=== PATIENT | female | born 1945 | race Caucasian/White ===

== ENCOUNTER 2018-01-07 12:10 | Inpatient (IN) | payer OTHER, MEDICAID ==
[~2018-01-07] VITALS: Ht 162.6 cm; Wt 93.0 kg
[2018-01-07] VITALS (7 sets, daily range): BP systolic 108–135; BP diastolic 39–53
--- NOTE | ~2018-01-07 | PROC ---
[address] [address] PROCEDURE REPORT Name: MADALYN HOLT Room: [address] IN ..#: [id number] Admission: 01/07/18 Attend Phys: Mary Ying MD Discharge: 01/13/18 Date of : 47 Report #: [id number] THIS REPORT FOR: //name// For GI report, Please see the Provation report In Perceptive 7. By: [facility]4Medical Records Staff MARIA DEL CARMEN /AAYUSH
[2018-01-07] MEDS ORDERED: COUMADIN 1MG TAB1 M1 (12:21)
[2018-01-07 12:50] LABS: HEMATOCRIT 20.3 % (37.0-47.0); MCH 30.1 pg (26.0-34.0); MCHC 31.7 g/dL (28.0-37.0); MPV 7.8 fl. (7.2-11.1); NUCLEATED RBCS 0 /100WBC; PLATELET COUNT* 365 thou/uL (150-400); RBC 2.14 mil/uL (4.20-5.00); RDW-CV 17.7 % (10.5-14.5); WBC 16.4 thou/uL (4.0-11.0)
[2018-01-07 12:58] LABS: BE 1.9 mmol/L (-2 to +3); PCO2 27.6 mmHg (35.0-45.0); pH 7.558 (7.340-7.450)
[2018-01-07 12:59] LABS: ANION GAP 9 mmol/L (7-16); BUN 35 mg/dL (7-18); CHLORIDE 104 mmol/L (98-107); CO2 27 mmol/L (21-32); CREATININE 1.5 mg/dL (0.6-1.3); GLUCOSE 218 mg/dL (70-99); SODIUM 140 mmol/L (136-145)
[2018-01-07 13:00] LABS: PO2 57.3 mmHg (75.0-100.0)
[2018-01-07 13:00] LABS: APTT 42.5 Seconds (25.0-31.3); PROTIME 83.7 Seconds (9.20-11.50)
[2018-01-07 13:10] LABS: ALBUMIN 2.3 g/dL (3.4-5.0); ALKALINE PHOSPHATASE 182 U/L (46-116); NT-PRO BRAIN NAT PEPTIDE 153 pg/mL (<300); POTASSIUM 2.9 mmol/L (3.5-5.1); SGOT 49 U/L (15-37); SGPT 39 U/L (30-65); TOTAL BILIRUBIN 0.7 mg/dL (<0.1-1.0); TOTAL PROTEIN 6.1 g/dL (6.4-8.2); TROPONIN-I LEVEL <0.06 ng/mL (<0.06)
[2018-01-07 13:11] LABS: INR 8.3
[2018-01-07 13:14] LABS: HEMOGLOBIN 6.5 gm/dL (12.0-15.0)
[2018-01-07 13:45] LABS: ABSOLUTE MONOCYTES 0.8 thou/uL (0.0-1.2); ABSOLUTE NEUTROPHILS 14.6 thou/uL (1.6-8.1); PLATELET ESTIMATE ADEQUATE
[2018-01-07 13:46] LABS: ANISOCYTOSIS 1+; HYPOCHROMASIA 1+; MACROCYTES 1+
--- NOTE | 2018-01-07 13:54 | NUR ---
MITALI NOTIFIED UPON PT RETURN FROM CT.PT CONNECTED TO MONITOR AND 02
--- NOTE | 2018-01-07 14:39 | NUR ---
ASSUMED PT CARE
--- NOTE | 2018-01-07 15:49 | NUR ---
PURSE MEDS AND BELONGINGS SENT WITH DAUGHTER ANDRES.
[2018-01-07] MEDS ORDERED: LASIX 40 MG TAB40 M2 PO (16:47)
[2018-01-07] MEDS ORDERED: ALDACTONE50 MG PO (16:48)
[2018-01-07] MEDS ORDERED: IRON325 PO (16:49)
[2018-01-07] MEDS ORDERED: PROPRANOLOL 1010 M1 (16:51)
[2018-01-07] MEDS ORDERED: OMEPRAZOLE40 MG PO (16:52)
[2018-01-07] MEDS ORDERED: PRENATAL MULTI1 EAC6 PO (16:53)
[2018-01-07] MEDS ORDERED: ASPIR-TRIN325 MG PO (16:53)
[2018-01-07] MEDS ORDERED: HUMALOG100 UNIT/1 SUBQ (16:55)
[2018-01-07] MEDS ORDERED: LANTUS SUBQ (16:56)
[2018-01-07] MEDS ORDERED: INVOKANA100 MG PO (16:57)
[2018-01-07] MEDS ORDERED: ENULOSE10 GM/15 M PO (17:00)
[2018-01-07] MEDS ORDERED: CELEBREX 200 M200 M1 PO (17:01)
[2018-01-07] MEDS ORDERED: FOSAMAX 70 MG T70 MG PO (17:02)
[2018-01-07 17:05] LABS: MAGNESIUM 1.9 mg/dL (1.8-2.4)
--- NOTE | 2018-01-07 17:14 | EKG ---
[place] [address] ELECTROCARDIOGRAM REPORT Name: SHIRIN HOLTKADI Stone Room: [address] ADM IN [facility].#: [id number] Admission: 01/07/18 Attend Phys: Mary Ying MD Discharge: Date of : 47 Report #: [id number] THIS REPORT FOR: //name// [facility] ED Test Date: 2018-01-07 Test Time: 13:24:18 Pat Name: MADALYN HOLT Department: Room: [facility] Gender: F Airport Representative: : 1945 Requested By: Solomon Conway Order Number: [id number] MD: Stephon Schaffer Measurements Intervals Dodge Rate: 103 P: MN: QRS: -28 QRSD: 106 T: 39 QT: 356 QTc: 466 Interpretive Statements sinus tachycardia Borderline left axis deviation artifact noted late transition No previous ECG available for comparison Electronically Signed On 01-07-2018 17:14:44 DRY HEAT ROOM ATTENDANT by Stephon Schaffer [email or web address] <ELECTRONICALLY SIGNED> By: Stephon Schaffer MD, [facility] 01/07/18 1714 1324 Stephon Schaffer MD, FACC /EPI
[2018-01-08] VITALS (7 sets, daily range): BP systolic 103–150; BP diastolic 43–56
[2018-01-08 05:21] LABS: MCH 31.1 pg (26.0-34.0); MCHC 32.9 g/dL (28.0-37.0); MCV 94.6 fL (80.0-100.0); MPV 7.6 fl. (7.2-11.1); NUCLEATED RBCS 0 /100WBC; RBC 1.95 mil/uL (4.20-5.00); WBC 5.6 thou/uL (4.0-11.0)
[2018-01-08 05:43] LABS: PLATELET COUNT* 176 thou/uL (150-400)
[2018-01-08 05:46] LABS: ALBUMIN 1.8 g/dL (3.4-5.0); ALKALINE PHOSPHATASE 121 U/L (46-116); ANION GAP 6 mmol/L (7-16); BUN 30 mg/dL (7-18); CALCIUM 7.4 mg/dL (8.5-10.1); CHLORIDE 110 mmol/L (98-107); CO2 29 mmol/L (21-32); CREATININE 1.2 mg/dL (0.6-1.3); GLUCOSE 147 mg/dL (70-99); PHOSPHORUS* 2.6 mg/dL (2.5-4.9); SGOT 39 U/L (15-37); SGPT 30 U/L (30-65); SODIUM 145 mmol/L (136-145); TOTAL BILIRUBIN 0.4 mg/dL (<0.1-1.0)
[2018-01-08 05:47] LABS: HEMATOCRIT 18.4 % (37.0-47.0); HEMOGLOBIN 6.1 gm/dL (12.0-15.0)
[2018-01-08 05:51] LABS: POTASSIUM 2.9 mmol/L (3.5-5.1)
[2018-01-08 07:05] LABS: CHOLESTEROL 78 mg/dL (<200); HDL CHOLESTEROL 30 mg/dL (>40); LDL CHOLESTEROL 42 mg/dL (<100); TC:HDL 2.6 Ratio (Not establshd); TRIGLYCERIDE 33 mg/dL (<150); VLDL 7 mg/dL (<40)
[2018-01-08 07:26] LABS: SERUM ASSESSMENT Clear
[2018-01-08 08:36] LABS: ABSOLUTE BASOPHILS 0.1 thou/uL (0.0-0.2); ABSOLUTE EOSINOPHILS 0.1 thou/uL (0.0-0.7); ABSOLUTE LYMPHOCYTES 0.7 thou/uL (0.8-5.3); ABSOLUTE MONOCYTES 0.7 thou/uL (0.0-1.2); ABSOLUTE NEUTROPHILS 4.1 thou/uL (1.6-8.1); LYMPHOCYTES 12.1 %; MONOCYTES 11.9 %
--- NOTE | 2018-01-08 08:47 | NUR ---
PT ALERT AND ORIENTED X 4 AT THIS TIME. SAT MAINTAINED IN 2L NC. CALL LIGHT WITHIN REACH AND FALL PRECAUTIONS MAINTAINED. DENIES ANY SOB. PT PASSED SWALLOW SCREEN TEST. VSS STABLE AND CHARTED. PT IS ON ELECTROLYTE PROTOCOL.
[2018-01-08 09:19] LABS: PROTIME 63.6 Seconds (9.20-11.50)
[2018-01-08 09:27] LABS: INR 6.3
--- NOTE | 2018-01-08 12:25 | 2DMMODE ---
[place] [address] 2 D/M-MODE ECHOCARDIOGRAM Name: HOLTMADALYN Room: [address] IN [facility]#: [id number] Admission: 01/07/18 Attend Phys: Mary Ying MD Discharge: Date of : 47 Date of Service: 01/08/18 1225 Report #: [id number] THIS REPORT FOR: //name// APPROVED REPORT Study performed: 01/07/2018 17:43:04 EXAM: Comprehensive 2D, Doppler, and color-flow Echocardiogram Patient Location: In-Patient Room #: [facility] BSA: 1.96 HR: 103 bpm BP: 123/49 mmHg Other Information Study Quality: Good Indications CVA/TIA Echo Enhancing Agent Indication: Rule out Shunt Agent(s) / Amount(s) Used: Agitated Saline 10 cc 2D Dimensions IVSd: 10.80 (7-11mm) LVOT Diam: 20.43 (18-24mm) LVDd: 45.41 mm PWd: 10.21 (7-11mm) Ascending Ao: 34.23 (22-36mm) LVDs: 29.04 (25-40mm) Aortic Root: 33.74 mm Volumes Left Atrial Volume (Systole) LA ESV Index: 19.70 mL/m2 Aortic Valve AoV Peak Cortez.: 2.04 m/s AO Peak Gr.: 16.66 mmHg LVOT Max P.82 mmHg AO Mean Gr.: 8.64 mmHg LVOT Mean P.65 mmHg LVOT Max V: 1.31 m/s AO V2 VTI: 34.08 cm LVOT Mean V: 0.88 m/s NADEEM (VTI): 2.13 cm2 LVOT V1 VTI: 22.10 [place] [address] 2 D/M-MODE ECHOCARDIOGRAM Name: MADALYN HOLT Room: [address] IN [facility]#: [id number] Admission: 01/07/18 Attend Phys: Mary Ying MD Discharge: Date of : 47 Date of Service: 01/08/18 1225 Report #: [id number] Medial E' Cortez.: 0.09 m/s Lateral E' Cortez.: 0.11 m/s Pulmonary Valve PV Peak Cortez.: 1.75 m/s PV Peak Gr.: 12.22 mmHg Tricuspid Valve RAP Estimate: 5.00 mmHg TR Peak Gr.: 27.88 mmHg RVSP: 32.88 mmHg PA Pressure: 32.88 mmHg Left Ventricle The left ventricle is normal size. There is normal LV segmental wall motion. There is normal left ventricular wall thickness. Left ventricular systolic function is normal. LVEF is 60-65%. Transmitral Doppler flow pattern suggests impaired LV relaxation. Right Ventricle The right ventricle is normal size. The right ventricular systolic function is normal. Atria The left atrium size is normal. Injection of bubbles documented no interatrial shunt. The right atrium size is normal. Aortic Valve The aortic valve is normal in structure. No aortic regurgitation is present. There is no aortic valvular stenosis. Mitral Valve The mitral valve is normal in structure. There is no mitral valve regurgitation noted. No evidence of mitral valve stenosis. Tricuspid Valve The tricuspid valve is normal in structure. Mild tricuspid regurgitation. The RVSP is 28 mmHg. Pulmonic Valve The pulmonary valve is normal in structure. There is no pulmonic valvular regurgitation. Great Vessels The aortic root is normal in size. IVC is normal in size and collapses >50% [place] [address] 2 D/M-MODE ECHOCARDIOGRAM Name: MADALYN HOLT Room: [address] IN [facility]#: [id number] Admission: 01/07/18 Attend Phys: Mary Ying MD Discharge: Date of : 47 Date of Service: 01/08/18 1225 Report #: [id number] There is no pericardial effusion. <Conclusion> The left ventricle is normal size. There is normal left ventricular wall thickness. Left ventricular systolic function is normal. LVEF is 60-65%. Transmitral Doppler flow pattern suggests impaired LV relaxation. Injection of bubbles documented no interatrial shunt. Mild tricuspid regurgitation. The RVSP is 28 mmHg. IVC is normal in size and collapses >50% with inspiration. <ELECTRONICALLY SIGNED> By: Rhys Aggarwal MD, FACC 01/08/18 1225 24 Rhys Aggarwal MD, FACC /INF
[2018-01-08 16:13] LABS: HEMOGLOBIN 7.1 gm/dL (12.0-15.0)
--- NOTE | 2018-01-08 18:47 | NUR ---
ASSUMED PT CARE AT 0730, FULL ASSESMENT DONE CHARTED. PT A/O X4, NPO FOR GI AND SPEECH THERAPY CONSULTS. VSS, SR ON THE MONITOR. SATS 96% ON 2L O2. PT RECIEVED 1 UNIT BLOOD TODAY, IRON, IV ABX, HAD MRI AND ECHO. PT EDUCATED ON TESTS AND RESULTS. FAMILY AT BEDSIDE. PT USES CALL LIGHT APPROPRIALTY FOR NEEDS. WAS ABLE TO EAT DINNER. NPO TONIGHT AT MIDNIGHT FOR ABD US TOMORROW. FALL PRECAUTIONS IN PLACE, WILL CONTINUE TO MONITOR.
[2018-01-09] VITALS: BP 122/56
[2018-01-09 01:23] LABS: ABSOLUTE BASOPHILS 0.1 thou/uL (0.0-0.2); ABSOLUTE EOSINOPHILS 0.2 thou/uL (0.0-0.7); ABSOLUTE LYMPHOCYTES 0.6 thou/uL (0.8-5.3); ABSOLUTE MONOCYTES 0.8 thou/uL (0.0-1.2); ABSOLUTE NEUTROPHILS 3.5 thou/uL (1.6-8.1); BASOPHILS 1.2 %; EOSINOPHILS 3.7 %; HEMATOCRIT 20.4 % (37.0-47.0); LYMPHOCYTES 10.9 %; MCH 29.8 pg (26.0-34.0); MCHC 32.4 g/dL (28.0-37.0); MCV 91.9 fL (80.0-100.0); MONOCYTES 15.4 %; MPV 7.9 fl. (7.2-11.1); NUCLEATED RBCS 1 /100WBC; PLATELET COUNT* 194 thou/uL (150-400); POLYS 68.8 %; RBC 2.21 mil/uL (4.20-5.00); RDW-CV 17.9 % (10.5-14.5); WBC 5.1 thou/uL (4.0-11.0)
[2018-01-09 01:29] LABS: PROTIME 38.4 Seconds (9.20-11.50)
[2018-01-09 01:30] LABS: HEMOGLOBIN 6.6 gm/dL (12.0-15.0)
[2018-01-09 01:34] LABS: INR 3.8
[2018-01-09 01:37] LABS: ALBUMIN 1.7 g/dL (3.4-5.0); CALCIUM 6.4 mg/dL (8.5-10.1); TOTAL BILIRUBIN 0.4 mg/dL (<0.1-1.0); TOTAL PROTEIN 4.8 g/dL (6.4-8.2)
[2018-01-09 01:38] LABS: POTASSIUM 3.9 mmol/L (3.5-5.1)
[2018-01-09 05:00] VITALS: BP 119/52
--- NOTE | 2018-01-09 06:47 | NUR ---
PT CARE ASSUMED AT 1930. ALERT AND ORIENTED X4. SAT MAINATAINED IN 2L NC. UP WITH ASSIST TO BEDSIDE COMMODE. CALL LIGHT WITHIN REACH AND BED IN LOW POSITION. DENIES PAIN AND SOB. WILL CONTINUE TO MONITOR.
[2018-01-09 08:00] VITALS: BP 111/51
[2018-01-09 12:00] VITALS: BP 124/56
[2018-01-09 13:39] LABS: HEMATOCRIT 28.5 % (37.0-47.0)
[2018-01-09 13:40] LABS: HEMOGLOBIN 9.3 gm/dL (12.0-15.0)
[2018-01-09 16:48] VITALS: BP 121/53
--- NOTE | 2018-01-09 19:43 | NUR ---
ASSUMED PT CARE AT 0730, FULL ASSESMENT DONE CHARTED. PT A/O X4, DENIES PAIN, UP WITH ASSIST. BM TODAY, VSS, SR ON THE MONITOR. PT SAT UP IN CHAIR FOR APPROX 2 HOURS THIS AFTERNOON. SHE C/O PRESSURE ON ABDOMEN AND WANTS TO LAY DOWN. PT USES CALL LIGHT APPROPRAILTY. FALL PRECAUTIONS IN PLACE. REPORT GIVEN TO KAUSHAL MCCLELLAN.
[2018-01-09 20:32] VITALS: BP 114/51
[2018-01-10] VITALS: BP 107/53
[2018-01-10 04:00] VITALS: BP 113/51
--- NOTE | 2018-01-10 06:05 | NUR ---
ASSUMED CARE OF PATIENT AT APPROX 1930. ALERT AND OREINTED X4. ASSESSMENT COMPLETED AND CHARTED. VSS ON 2 LITERS 02 VIA NC. RIGHT ANF LEFT FOREARM IVS REMAIN PATENT WITH FLUSHES, ANIBITOIC INFUSED ORDERED. PATIENT UP WITH ONE TO BEDSIDE COMMODE. NSR ON THE MONITOR. NO COMPLAINTS OF PAIN, NAUSEA, OR SOA THIS SHIFT. HOURLY ROUNDS MAINTAINED, CALL LIGHT IN REACH, NURSING WILL CONTINUE TO MONITOR.
[2018-01-10 06:08] LABS: HEMATOCRIT 25.3 % (37.0-47.0); HEMOGLOBIN 8.3 gm/dL (12.0-15.0); MCH 29.5 pg (26.0-34.0); MCHC 32.7 g/dL (28.0-37.0); MCV 90.3 fL (80.0-100.0); MPV 7.9 fl. (7.2-11.1); NUCLEATED RBCS 0 /100WBC; PLATELET COUNT* 235 thou/uL (150-400); RDW-CV 17.8 % (10.5-14.5); WBC 6.8 thou/uL (4.0-11.0)
[2018-01-10 06:39] LABS: ALBUMIN 1.9 g/dL (3.4-5.0); CALCIUM 7.2 mg/dL (8.5-10.1); POTASSIUM 3.2 mmol/L (3.5-5.1); PROTIME 22.8 Seconds (9.20-11.50); TOTAL BILIRUBIN 0.5 mg/dL (<0.1-1.0); TOTAL PROTEIN 5.4 g/dL (6.4-8.2)
[2018-01-10 06:44] LABS: INR 2.2
[2018-01-10 07:37] LABS: ABSOLUTE EOSINOPHILS 0.3 thou/uL (0.0-0.7); ABSOLUTE MONOCYTES 0.8 thou/uL (0.0-1.2); ABSOLUTE NEUTROPHILS 4.7 thou/uL (1.6-8.1)
[2018-01-10 07:38] LABS: PLATELET ESTIMATE ADEQUATE
[2018-01-10 07:39] LABS: ANISOCYTOSIS 2+; MICROCYTES 1+
[2018-01-10 08:10] VITALS: BP 127/50
--- NOTE | 2018-01-10 11:02 | NUR ---
WAS ASKED BY DR GUEVARA TO CHECK COPAYS FOR MEDS. CALLED MEDS INTO [facility] IN [place] [phone], PER ERIC/TY, XARELTO 15MG BID [id number] SCRIPT IS $0 COPAY. XIFAXAN REQUIRED A PRIOR AUTH, SUBMITTED ONLINE THRU '[facility]' AND CAN TAKE UP TO 72HRS TO GET ANSWER. CALL TO DR GUEVARA TO UPDATE. WILL FOLLOW
[2018-01-10 12:41] VITALS: BP 123/58
--- NOTE | 2018-01-10 15:54 | NUR ---
Pt is A&O. Resides at home with her dtr, normally active and independent. Plans to move in with a different dtr out of town. No DME. No hx of HH or SNF. Goal is home at dc. Pt currently has a broken wrist, therapies following. CM to remain available through dc.
[2018-01-10 16:21] VITALS: BP 113/51
--- NOTE | 2018-01-10 18:48 | NUR ---
ASSUMED PT CARE AT 0730, FULL ASSESMENT DONE CHARTED. PT A/O X4, C/O VAUGHN, TYLENOL GIVEN. PT WANTS TO KNOW PLAN FOR TOMORROW, IF SHE WILL HAVE EGD. PT UP WITH PT TODAY. SAT IN CHAIR THIS AFTERNOON. PTS VSS, SR ON THE MONITOR. FALL PRECAUTIONS IN PLACE. PT USES CALL LIGHT APPROPRIALTY. WILL CONTINUE TO MONITOR.
[2018-01-10 20:00] VITALS: BP 113/55
[2018-01-11] VITALS: BP 120/50
[2018-01-11 04:00] VITALS: BP 108/52
--- NOTE | 2018-01-11 05:18 | NUR ---
ASSUMED CARE OF PT AT 1900. PT IS ALERT AND ORIENTED. VSS. PERRLA. NO COMPLAINTS OF PAIN. PT IS NPO FOR EGD TODAY. PT IS IN SINUS RYTHM ON THE TELEMETRY. PT IS RESTING COMFORTABLY IN BED. RESPIRATIONS ARE EVEN AND NONLABORED. WILL CONTINUE TO MONITOR PT.
[2018-01-11 05:23] LABS: HEMATOCRIT 23.9 % (37.0-47.0); HEMOGLOBIN 7.9 gm/dL (12.0-15.0); MCHC 33.1 g/dL (28.0-37.0); MCV 90.6 fL (80.0-100.0); MPV 7.4 fl. (7.2-11.1); RBC 2.64 mil/uL (4.20-5.00); RDW-CV 17.3 % (10.5-14.5); WBC 5.4 thou/uL (4.0-11.0)
[2018-01-11 05:40] LABS: INR 1.6; PROTIME 16.1 Seconds (9.20-11.50)
[2018-01-11 05:45] LABS: ALBUMIN 1.8 g/dL (3.4-5.0); CALCIUM 7.6 mg/dL (8.5-10.1); CREATININE 1.2 mg/dL (0.6-1.3); MAGNESIUM 1.6 mg/dL (1.8-2.4); POTASSIUM 4.2 mmol/L (3.5-5.1); TOTAL BILIRUBIN 0.6 mg/dL (<0.1-1.0); TOTAL PROTEIN 5.3 g/dL (6.4-8.2)
[2018-01-11 08:00] VITALS: BP 128/47
[2018-01-11 08:02] VITALS: BP 108/52
--- NOTE | 2018-01-11 11:16 | NUR ---
AUTH OBTAINED FOR XIFAXAN THRU INSURANCE, CALL TO [facility], IS $[address] GUEVARA UPDATED WELL [facility] [place]. [facility] DID SAY THEY WOULD HAVE TO ORDER MED FOR PT, DO NOT HAVE IN STOCK. SCRIPT FOR XARELTO AND XIFAXAN BOTH ON HOLD AT [facility]
[2018-01-11 12:48] LABS: URINE BILIRUBIN NEGATIVE (Negative); URINE BLOOD NEGATIVE (Negative); URINE CLARITY CLEAR; URINE COLOR YELLOW; URINE GLUCOSE-RANDOM NEGATIVE (Negative); URINE KETONES NEGATIVE (Negative); URINE LEUKOCYTES-REFLEX NEGATIVE (Negative); URINE NITRITE-REFLEX NEGATIVE (Negative); URINE PROTEIN NEGATIVE (Negative); URINE SPECIFIC GRAVITY 1.015 (1.005-1.030); URINE UROBILINOGEN 0.2 E.U./dl (0.2-1.0)
--- NOTE | 2018-01-11 18:10 | NUR ---
assumed pt care at 0730, full assesment done as charted. pt a/o x4, denies pain, npo this am for egd, arrived back to room post egd at approx 1145. pt pleasant, wants to eat, up to chair with assist, voiding per BSC, had US of LE today, results communicated to DR Maharaj. pt wants to DC home soon. fall precautions maintained. fall precautions in place. will continue to monitor.
[2018-01-12 01:07] VITALS: BP 109/46
--- NOTE | 2018-01-12 03:58 | NUR ---
RECIEVED REPORT AND ASSUMED CARE AT 1900. VITAL SIGNS STABLE. SOB WITH MIN EXCERTION. 3+ EDEMA IN BILAT LOWER EX. PT UP WITH ASSIST X 1. AMBULATES WITH WALKER AND STANDBY ASSIST. ASSESSMENT COMPLETED AND DISCUSSED PLAN OF CARE AND PT UNDERSTANDS. PT DENIES ANY PAIN. BED LOCKED, ALARM ON AND CALL LIGHT WITHIN REACH. HOURLY ROUNDING DONE AND ALL NEEDS MET. NURSING WILL CONTINUE TO MONITOR.
[2018-01-12 04:00] VITALS: BP 112/48
[2018-01-12 05:46] LABS: HEMATOCRIT 23.2 % (37.0-47.0); HEMOGLOBIN 7.6 gm/dL (12.0-15.0); MCH 29.7 pg (26.0-34.0); MCHC 32.9 g/dL (28.0-37.0); MCV 90.1 fL (80.0-100.0); MPV 7.2 fl. (7.2-11.1); RBC 2.57 mil/uL (4.20-5.00); WBC 4.9 thou/uL (4.0-11.0)
[2018-01-12 05:51] LABS: CALCIUM 7.3 mg/dL (8.5-10.1); MAGNESIUM 1.4 mg/dL (1.8-2.4); POTASSIUM 3.7 mmol/L (3.5-5.1)
--- NOTE | 2018-01-12 09:16 | NUR ---
ASSUMED CARE OF PT AT 0730. ROSE GROWER STATED PT REQUESTED A 'PAIN SHOT' PT DENIES C/O PAIN AT THIS TIME. VSS ON 2L VIA NC. NURSING WILL CONTINUE TO MONITOR FOR COMFORT AND SAFTEY.
[2018-01-12 12:00] VITALS: BP 121/54
[2018-01-12 16:00] VITALS: BP 124/47
--- NOTE | 2018-01-12 16:10 | CON ---
[address] [address] CONSULTATION Name: MADALYN HOLT Room: [address] IN M.R.#: [id number] Admission: 01/07/18 Attend Phys: Mary Ying MD Discharge: Date of : 47 Report #: [id number] THIS REPORT FOR: //name// CC: Shekhar Dan MD Physician staff Mary Ying MD DATE OF SERVICE: 01/07/2018 REFERRING PHYSICIAN: Mary Ying MD. REASON FOR CONSULTATION: 1. Mental status changes, has had problems with mental status changes secondary to hepatic encephalopathy, which appeared to be improved. 2. 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 3. Chronic iron deficiency anemia requiring intermittent night of iron infusions, which appeared to be on a quarterly basis. 4. Chronic kidney disease. 5. Cardiomyopathy, per the patient report with essentially normal echo here, numerous deep vein thromboses requiring chronic Coumadin with difficulty regulating her INR. 6. Hypokalemia contributing to #1 above. RECOMMENDATIONS: 1. Agree with blood and iron infusions plus correction of her hypokalemia at this time. 2. We will schedule the patient for an abdominal ultrasound with Dopplers of hepatic and portal veins to be done tomorrow. 3. We will continue to correct her INR down to a therapeutic level between 2 and 3 and see if we can get the patient approved for something that would not require monitoring on a regular basis with Coumadin as it has been difficult to get it controlled. 4. We will proceed with upper endoscopy once her INR is down in to a therapeutic range. 5. I will have to discuss the patient's care with her primary care provider, with continuous improvement specialist, browning processor, etc. to get more information regarding her care as most of it is performed either in [place] or [place]. 6. We want to get her records regarding her previous endoscopy, status of liver disease, but she has never been treated for hepatitis C, plan to follow up, etc. 7. Discussed the plans with the patient as well as [place] [address] CONSULTATION Name: SHIRIN HOLTKADI Stone Room: [address]#: [id number] Admission: 01/07/18 Attend Phys: Mary Ying MD Discharge: Date of : 47 Report #: [id number] agreeable to the same. I spent 45 minutes with the patient during the hospital from the patient's case consultation but also another 30 minutes looking through her records. HISTORY OF PRESENT ILLNESS: A very pleasant 72-year-old white female with end-stage liver disease secondary to hepatitis C, who was admitted to hospital with mental status changes and weakness. This appears to have resolved. This is probably most compatible with hepatic encephalopathy. She is followed in [place] by her primary care provider and her browning processor, but by continuous improvement specialist at [facility] in [place]. She has been followed by them on a weekly basis and is due to be seen sometime later this month. She is accompanied by her daughter and her granddaughter are very knowledgeable about the patient's condition. The patient denies any major complaints referable to her upper or lower GI tract other than chronic acid reflux, chronic anemia, which had required iron infusions, blood transfusions in the past. She apparently gets blood transfusions on a quarterly basis. She has undergone EGDs and variceal banding and also apparently treatment of her GAVE (gastric antral vascular ectasia), watermelon stomach under direction of the [facility] in [facility]. She has had problem with chronic dark stools, but not sure if it is related to iron or actually bleeding. She denies any complaints of any abdominal pain, fevers or chills. She denies any hematemesis or hematochezia. She does not know when her last colonoscopy was performed. She is admitted to the hospital and with hydration, her mental status has improved. I suspect it was related to hepatic encephalopathy. She is on medications for her liver disease. She apparently has chronic liver disease secondary to hepatitis C that she got from a blood transfusion when she had her hysterectomy back in the early 1980s. ALLERGIES: None. MEDICATIONS AT HOME: Include warfarin, spironolactone 50 mg once daily, Lasix 40 mg once daily, ferrous sulfate 325 mg once daily, propranolol 10 mg either once or twice daily, omeprazole once daily, aspirin 325 mg once daily, insulin, both Humalog and Lantus insulin, Invokana, lactulose, and she has been taking Celebrex. PAST MEDICAL HISTORY: Remarkable for end-stage liver disease secondary to hepatitis C with associated encephalopathy, variceal bleeding, chronic anemia, GAVE and hepatic encephalopathy. She has history of DVTs diagnosed earlier this year including chronic anemia, diabetes, ____ stroke as well. SOCIAL HISTORY: The patient does not smoke, does not drink alcohol nor does she have a history of the same. She lives with her daughter here in ____. PHYSICAL EXAMINATION: GENERAL: Revealed pleasant 72-year-old white female who is fairly lucid at this [address] [place] [address] CONSULTATION Name: MADALYN HOLT Room: [address] IN ..#: [id number] Admission: 01/07/18 Attend Phys: Mary Ying MD Discharge: Date of : 47 Report #: [id number]. CARDIOPULMONARY: Revealed a regular rate and rhythm. LUNGS: Clear. ABDOMEN: Soft. She may have some ascites. Her liver appeared to be firm. I cannot really appreciate any splenomegaly. LABORATORY TESTS: From admission revealed a white count of 16.4, hemoglobin 6.5, platelet count 365,000, MCV is 95, RDW 17.7. Her sodium 140, potassium 2.9, chloride 101, bicarb is 27. Her BUN is 35, creatinine 1.5. Her GFR 134. Total bilirubin is 0.7, alkaline phosphatase 182, AST is 41, ALT 39, albumin is 2.3. Her BNP is 153. Her protime is 83.7, INR of 8.3. DISCUSSION: At the present time, the patient has hepatic encephalopathy, which appears to be improved. This is related to metabolic causes including some issues with her bowels and hypokalemia. I agree with giving her iron at this point in time and blood transfusions to get her hemoglobin above 8. We discussed the patient's case with her primary care provider and her continuous improvement specialist. I would also like to ask briefcase sewer to evaluate the patient for possible switch from Coumadin to Xarelto, which will be a lot easier for her and a lot easier to regulate for her DVTs. We are going to then figure out who she is going to follow when she gets out of the hospital because she no longer lives in [place] and she is willing to have her GI care done through us. While she continues with her primary care provider, she may need to have different browning processor, surveyor mine, disintegrator operator, etc. closer to home. Certainly ____ of care at a different facility is not a good option for her buttermaker continuous churn. <ELECTRONICALLY SIGNED> By: Jacky Smalls DO 01/12/18 1610 0726 [id number] Smalls DO /nt
--- NOTE | 2018-01-12 18:48 | NUR ---
PT CONTINUED TO BE A&O X4 SHE HAS HAD NO C/O DISTRESS BUT DOES CONTINUE TO HAVE A NONPRODUCTIVE COUGH. SHE DOES NOT WEAR ANY O2 EVEN WHEN ENCOURAGED. O2 SATS ARE STABLE ON ROOM AIR BUT PT AT TIMES SEEMS SOA AND BREATHING IS LABORED FOLLOWING A COUGHING SPELL. MEDICATIONS ADMINISTERED PER MAR AND HOURLY ROUNDING COMPLETED FOR PT COMFORT AND SAFTEY.
[2018-01-13] VITALS (7 sets, daily range): BP systolic 100–120; BP diastolic 44–53
--- NOTE | 2018-01-13 04:09 | NUR ---
RECIEVED REPORT AND ASSUMED CARE AT 1900. BP LOW AND OXYGEN LEVEL LOW AND PT IS REFUSING TO WEAR OXYGEN AND OTHER ROSE VITALS STABLE. PT UP WITH ASSIST X 1 AND USES THE WALKER WITH STANDBY ASSIST. PT IS ON RA. PT DENIES ANY PAIN. BED LOCKED, ALARM ON AND CALL LIGHT WITHIN REACH. HOURLY ROUNDING AND ALL NEEDS MET. NURSING WILL CONTINUE TO MONITOR.
--- NOTE | 2018-01-13 09:48 | NUR ---
REPORT CALLED TO JUAN MCCLELLAN WILL TRANSPORT PT TO [facility].
--- NOTE | 2018-01-13 10:21 | NUR ---
PT TRANSFERRED TO UNIT. I AGREE WITH ASSESSMENT FINDINGS. PT IS ALERT AND ORIENTED. PT DOES NOT C/O PAIN OR STATE THEY HAVE ANY NEEDS AT THIS TIME. BED ALARM ON. WILL CONTINUE TO MONITOR.
[2018-01-13] MEDS ORDERED: ALDACTONE50 MG PO ×2 (12:45→12:49)
[2018-01-13] MEDS ORDERED: ASPIR 8181 MG PO (12:45)
[2018-01-13] MEDS ORDERED: XARELTO20 MG PO (12:45)
[2018-01-13] MEDS ORDERED: XIFAXAN550 M1 PO ×3 (12:47→12:50)
--- NOTE | 2018-01-13 15:06 | NUR ---
REVIEWED AND AGREE WITH ALL CHARTING AND ASSESSMENTS COMPLETED BY REYMUNDO Peterson RN.
--- NOTE | 2018-01-13 15:38 | NUR ---
ALL AROUND GEAR MACHINE OPERATOR SPOKE TO THE PATIENT TO DISCUSS DISCHARGE PLANNING NEEDS AND HH AT D/C. PATIENT IN AGREEMENT AND REQUEST HH WITH [facility]. D/C CARPET JOURNEYMAN SPOKE TO RAFI WITH [facility] TO INFORM OF THE REFERRAL FOR HH AND FAXED THE PATIENT'S FACESHEET, H&P, AND D/C SUMMARY. CM WILL REMAIN AVAILABLE TO ASSIST AND FOLLOW NEEDED.
--- NOTE | 2018-01-13 16:04 | NUR ---
PT GIVEN DISCHARGE INFORMATION AT THIS TIME. PRESCRIPTIONS GIVEN. PT DAUGHTER CAME TO DOG POUND ATTENDANT PT. IV REMOVED. PT LEFT VIA WHEELCHAIR WITH NURSING STAFF TO HOME CARE WITH HOME HEALTH.
== END 2018-01-13 16:08 | disposition home health service (06) | DRG 871 ==
LOC: M.ERS 12:10 → M.2W 14:46 → M.TBA-ER 14:46 → M.2W 16:08 → M.ORTHSURG 01-13 09:47
PROVIDERS: Emergency Medicine Emergency Medical Services; Internal Medicine; Internal Medicine Gastroenterology; ADMIT Family Medicine
PROC: 30233N1 Transfusion of Nonautologous Red Blood Cells into Peripheral Vein, Percutaneous Approach (ICD-10-PCS; principal; 2018-01-07)
PROC: 06L38CZ Occlusion of Esophageal Vein with Extraluminal Device, Via Natural or Artificial Opening Endoscopic (ICD-10-PCS; 2018-01-11)
DX: A41.9 Sepsis, unspecified organism (principal); J96.01 Acute respiratory failure with hypoxia; G93.41 Metabolic encephalopathy; K65.2 Spontaneous bacterial peritonitis; I42.9 Cardiomyopathy, unspecified; R18.8 Other ascites; N17.9 Acute kidney failure, unspecified; I50.32 Chronic diastolic (congestive) heart failure; K76.6 Portal hypertension; I85.00 Esophageal varices without bleeding; I13.0 Hypertensive heart and chronic kidney disease with heart failure and stage 1 through stage 4 chronic kidney disease, or unspecified chronic kidney disease; R65.20 Severe sepsis without septic shock; K72.90 Hepatic failure, unspecified without coma; B19.20 Unspecified viral hepatitis C without hepatic coma; D50.9 Iron deficiency anemia, unspecified; E87.6 Hypokalemia; K74.60 Unspecified cirrhosis of liver; G35 Multiple sclerosis; K31.819 Angiodysplasia of stomach and duodenum without bleeding; N18.3 Chronic kidney disease, stage 3 (moderate); K22.8 Other specified diseases of esophagus; E11.22 Type 2 diabetes mellitus with diabetic chronic kidney disease; L90.5 Scar conditions and fibrosis of skin; Z79.899 Other long term (current) drug therapy; Z86.73 Personal history of transient ischemic attack (TIA), and cerebral infarction without residual deficits; Z86.718 Personal history of other venous thrombosis and embolism; Z80.6 Family history of leukemia; Z82.49 Family history of ischemic heart disease and other diseases of the circulatory system; Z83.6 Family history of other diseases of the respiratory system; Z79.01 Long term (current) use of anticoagulants; Z79.82 Long term (current) use of aspirin; Z79.1 Long term (current) use of non-steroidal anti-inflammatories (NSAID)